=== PATIENT | male | born 1985 | race Hispanic/Latino ===

== ENCOUNTER 2017-12-31 08:08 | Emergency (ER) | payer BC ==
[2017-12-31 08:10] VITALS: BMI 46.1
[2017-12-31 08:11] VITALS: O2SAT 100
[2017-12-31] MEDS ORDERED: Sodium Chloride 0.9% 1,000 ML IV STA (08:30)
--- NOTE | 2017-12-31 08:31 | ED PDOC ---
- Laboratory Results Result Diagrams: 12/31/17 08:53 12/31/17 08:53 Interpretation Of Abn Labs: 3.5 k - ECG ECG: Positive for: Interpreted By Me, Viewed By Me ECG Rhythm: Positive for: Normal QRS, Normal ST Segment, Sinus Rhythm O2 Sat by Pulse Oximetry: 100 (RA) Pulse Ox Interpretation: Normal - Radiology X-Ray: Read By Radiologist X-Ray Interpretation: No Acute Disease - Progress ED Course And Treament: 1039: Stable. AAOx3. Crisis saw pt. Does not meet criteria for admit. Fu outpt. Tolerated PO. Calm and symptoms currently. No pain. Medical Decision Making Medical Decision Making: Time: 08:29 Initial Impression: Anxiety attack Initial Plan: --EKG --Alcohol serum --CMP --Drug screen, urine --Troponin I --Crisis evaluation --CBC with differential --CXR --Ativan 0.5 mg IVP --Sodium Chloride 0.9% 1,000 ml IV 1000 mls/hr --Toradol 15 mg IVP ----- Scribe Attestation: Documented by Nomi Wilson, acting as a scribe for Yariel Ruiz MD. Provider Scribe Attestation: All medical record entries made by the Scribe were at my direction and personally dictated by me. I have reviewed the chart and agree that the record accurately reflects my personal performance of the history, physical exam, medical decision making, and the department course for this patient. I have also personally directed, reviewed, and agree with the discharge instructions and disposition. Disposition - Clinical Impression Clinical Impression: Anxiety, Hypokalemia - POA Present On Arrival: None - Disposition Referrals: [facility] [Outside] - 01/04/18 Disposition: Routine/Home Disposition Time: 10:40 Condition: STABLE Additional Instructions: Return if not better in 3 days. Instructions: Hypokalemia, Anxiety, Adult (DC) Forms: [facility] (Polish), [facility] ED School/Work Excuse HPI: Psych/Substance Abuse Time Seen by Provider: 12/31/17 08:23 Chief Complaint (Nursing): Anxiety Chief Complaint (Provider): Anxiety Onset/Duration Of Symptoms: Hrs (prior to arrival) Associated Symptoms: Anxiety Additional Complaint(s): Any Bhatti is a 32 y/o male with history of anxiety, who presents to the ED complaining of an anxiety attack. Patient reports that he has been having anxiety attacks for a long time but they have become more frequent over the past couple weeks. Patient states that nothing specific necessarily triggers the attack and they generally go away on their own. He also states that chest pain, bilateral hand numbness, dizziness, shortness of breath, and a feeling like he needs to get out of the area are all symptoms associated with the anxiety attacks and that they resolve on their own. Patient reports that the same symptoms have been manifesting for the past several months. Right now he feels a little dizzy and a little anxious. He denies any current chest pain, shortness of breath, abdominal pain, leg pain, nausea, vomiting, or vision changes. Patient has not taken any medications for symptoms. He also denies any long distance travel or any hormone treatments. PMD: None provided Past Medical History Reviewed: Historical Data, Nursing Documentation, Vital Signs Vital Signs: Last Vital Signs Temp 98.5 F 12/31/17 08:11 Pulse 105 H 12/31/17 08:11 Resp 20 12/31/17 08:11 BP 146/77 12/31/17 08:11 Pulse Ox 100 12/31/17 09:14 - Medical History PMH: Anxiety - Surgical History Surgical History: No Surg Hx - Family History Family History: States: Unknown Family Hx - Social History Current smoker - smoking cessation education provided: No Alcohol: None Drugs: Denies - Allergies Allergies/Adverse Reactions: Allergies Allergy/AdvReac Type Severity Reaction Status Date / Time No Known Allergies Allergy Verified 12/31/17 08:27 Review of Systems ROS Statement: Except As Marked, All Systems Reviewed And Found Negative Constitutional: Negative for: Fever Eyes: Negative for: Vision Change Cardiovascular: Negative for: Chest Pain Respiratory: Negative for: Shortness of Breath Gastrointestinal: Negative for: Nausea, Vomiting, Abdominal Pain Musculoskeletal: Negative for: Leg Pain Neurological: Positive for: Dizziness Psych: Positive for: Anxiety Physical Exam - Reviewed Nursing Documentation Reviewed: Yes Vital Signs Reviewed: Yes - Physical Exam Appears: Positive for: Non-toxic, No Acute Distress Head Exam: Positive for: ATRAUMATIC, NORMOCEPHALIC Skin: Positive for: Normal Color, Warm, Dry Eye Exam: Positive for: EOMI, Normal appearance, PERRL Neck: Positive for: Normal, Painless ROM, Supple Cardiovascular/Chest: Positive for: Regular Rate, Rhythm. Negative for: Chest Non Tender (mild tenderness to palpation of left chest), Murmur Respiratory: Positive for: Normal Breath Sounds. Negative for: Respiratory Distress Gastrointestinal/Abdominal: Positive for: Normal Exam, Soft. Negative for: Tenderness Back: Positive for: Normal Inspection. Negative for: L CVA Tenderness, R CVA Tenderness, Vertebral Tenderness (midline tenderness) Extremity: Positive for: Normal ROM. Negative for: Pedal Edema, Deformity Neurologic/Psych: Positive for: Alert, steersman II-XII, Oriented. Negative for: Motor/Sensory Deficits, Aphasia, Facial Droop
[2017-12-31 09:02] LABS: BASO # 0.1 K/uL (0.0-0.2); BASO % 0.6 % (0.0-2.0); EOS # 0.2 K/uL (0.0-0.7); EOS % 2.1 % (0.0-4.0); HEMOGLOBIN 15.6 g/dL (12.0-18.0); LYMPH # 3.3 K/uL (1.0-4.3); LYMPH % 29.7 % (20.0-40.0); MEAN CORPUSCULAR HEMOGLOBIN 28.5 pg (27.0-31.0); MEAN CORPUSCULAR HGB CONC 34.4 g/dL (33.0-37.0); MEAN PLATELET VOLUME 9.7 fl (7.2-11.7); MONO # 0.8 K/uL (0.0-0.8); MONO % 7.4 % (0.0-10.0); NEUT # 6.7 K/uL (1.8-7.0); NEUT % 60.2 % (50.0-75.0); NRBC % 0.1 % (0.0-0.0); RBC 5.45 Mil/uL (4.40-5.90); RED CELL DISTRIBUTION WIDTH 13.5 % (11.5-14.5); WHITE BLOOD COUNT 11.2 K/uL (4.8-10.8)
[2017-12-31 09:13] LABS: ALB/GLOB RATIO 1.2 (1.0-2.1); ALBUMIN 4.6 g/dL (3.5-5.0); ALT/SGPT 65 U/L (21-72); AST/SGOT 41 U/L (17-59); BLOOD UREA NITROGEN 7 mg/dl (9-20); CALCIUM 9.9 mg/dL (8.4-10.2); GFR AFRICAN-AMERICAN > 60; GFR NON-AFRICAN AMERICAN > 60
--- NOTE | 2017-12-31 09:23 | RAD ---
Date of service: 12/31/2017 HISTORY: dyspnea COMPARISON: No prior. FINDINGS: LUNGS: Poor inspiration with low lung volumes, crowded bronchovascular markings and bibasilar atelectasis. PLEURA: No significant pleural effusion identified, no pneumothorax apparent. CARDIOVASCULAR: Mild cardiomegaly. OSSEOUS STRUCTURES: No significant abnormalities. VISUALIZED UPPER ABDOMEN: Normal. OTHER FINDINGS: None. IMPRESSION: Poor inspiration with low lung volumes, crowded bronchovascular markings and bibasilar atelectasis.
[2017-12-31 10:26] LABS: BARBITURATES, UR NEGATIVE (NEGATIVE); BENZODIAZEPINES, UR NEGATIVE (NEGATIVE); OPIATES, UR NEGATIVE (NEGATIVE); PHENCYCLIDINE, UR NEGATIVE (NEGATIVE)
[2017-12-31] MEDS ORDERED: Potassium Chloride 20 mEq ER Tab PO STA (10:38)
[2017-12-31] MEDS ORDERED: Potassium Chloride 20 mEq ER Tab PO ONE (10:46)
[2017-12-31 11:10] VITALS: BP 138/68; PULSE 88; RESP 18; TEMP 98
--- NOTE | 2018-01-04 12:46 | CARD ---
APPROVED REPORT Date of service: 12/31/2017 EKG Measurement Heart [id number] <Conclusion> Normal sinus rhythm with sinus arrhythmia Normal ECG
== END 2017-12-31 10:50 | disposition home or self-care (01) ==
LOC: H.ER 08:08
DX: F41.9 Anxiety disorder, unspecified (principal); E87.6 Hypokalemia
CPT/HCPCS: 71045; 80053; 84484; 85025; 93005; 96361; 96374; 99282; G0480; J1885; J2060; J7030